=== PATIENT | male | born 1970 | race Caucasian/White ===

== ENCOUNTER 2018-03-19 11:36 | Emergency (ER) | payer OTHER ==
[~2018-03-19] VITALS: Ht 167.6 cm; Wt 108.9 kg
[~2018-03-19 11:36] MED LIST: ATEN25 PO; ATEN50 PO; Ativan1 MG SL; CLON.1 PO; Carvedilol12.5 MG PO; Cleocin HCl300 MG PO; HYDCHL12.5 PO; HYDPAM50 PO; LAMO100 PO; MIRT30 PO; Naprosyn500 MG PO; PROM25; Vibramycin100 MG PO
[2018-03-19 12:25] LABS: BASOPHILS ABSOLUTE AUTO 0.03 K/mm3 (0.00-0.23); BASOPHILS PERCENT AUTO 0 % (0-2); EOSINOPHILS ABSOLUTE AUTO 0.11 K/mm3 (0.00-0.68); EOSINOPHILS PERCENT AUTO 2 % (0-6); Hematocrit 43.8 % (37.0-53.0); Hemoglobin 15.1 g/dL (13.5-17.5); IMMATURE GRAN ABSOLUTE AUTO 0.03 K/mm3 (0.00-0.10); IMMATURE GRAN PERCENT AUTO 0 % (0-1); LYMPHOCYTES ABSOLUTE AUTO 1.39 K/mm3 (0.84-5.20); LYMPHOCYTES PERCENT AUTO 21 % (21-46); MONOCYTES ABSOLUTE AUTO 0.39 K/mm3 (0.16-1.47); MONOCYTES PERCENT AUTO 6 % (4-13); Mean Corpuscular HGB 27.2 pg (26.0-34.0); Mean Corpuscular HGB Conc 34.5 g/dL (31.5-36.5); Mean Corpuscular Volume 79 fL (80-100); Mean Platelet Volume 9.7 fL (9.1-12.4); NEUTROPHILS ABSOLUTE AUTO 4.84 K/mm3 (1.96-9.15); NEUTROPHILS PERCENT AUTO 71 % (41-73); Platelet Count 241 K/mm3 (150-400); RDW Standard Deviation 38.9 fL (35.1-46.3); Red Blood Cell Count 5.56 M/mm3 (4.30-5.90); White Blood Cell Count 6.79 K/mm3 (4.00-11.30)
[2018-03-19] MEDS ORDERED: Abilify2 MG (12:27)
[2018-03-19] MEDS ORDERED: METF500C PO (12:27)
[2018-03-19] MEDS ORDERED: FLUO10 PO (12:28)
[2018-03-19] MEDS ORDERED: FENO145 PO (12:28)
[2018-03-19] MEDS ORDERED: AMLO5 PO (12:28)
[2018-03-19] MEDS ORDERED: LISI20 PO (12:28)
[2018-03-19 12:46] LABS: Alanine Aminotransfer (ALT/SGP 49 U/L (12-78); Albumin, Blood 3.9 g/dL (3.4-5.0); Alk Phos 69 U/L (50-136); Anion Gap 11 mmol/L (6-16); Aspartate Aminotrans (AST/SGOT 31 U/L (12-37); Bilirubin, Total 0.5 mg/dL (0.1-1.0); Blood Urea Nitrogen 16 mg/dL (8-24); Bun/Creatinine Ratio 20.1 (12.0-20.0); CO2, Blood 23 mmol/L (21-32); Calcium, Blood 8.8 mg/dL (8.5-10.1); Chloride, Blood 104 mmol/L (98-108); Globulin, Blood 3.8 g/dL (2.2-4.0); Glomerular Filtration Rate >60 (60-); Glucose, Blood 125 mg/dL (70-99); Sodium, Blood 138 mmol/L (136-145); Total Protein, Blood 7.7 g/dL (6.4-8.2); Troponin I <0.015 ng/mL (0.000-0.040)
== END 2018-03-19 14:54 | disposition home or self-care (01) ==
LOC: ER 11:36
PROVIDERS: Physician Assistant
DX: I10 Essential (primary) hypertension (principal); E11.9 Type 2 diabetes mellitus without complications; Z87.891 Personal history of nicotine dependence; Z79.899 Other long term (current) drug therapy; Z79.84 Long term (current) use of oral hypoglycemic drugs
CPT/HCPCS: 36415; 71046; 80053; 83880; 84484; 85025; 93005; 93010; 96374; 96376; 99284

== ENCOUNTER 2019-07-05 07:38 | Emergency (ER) | payer OTHER ==
[~2019-07-05] VITALS: Ht 167.6 cm; Wt 90.7 kg
[~2019-07-05 07:38] MED LIST changes: +AMLO5 PO; +Abilify2 MG; +FENO145 PO; +FLUO10 PO; +LISI20 PO; +METF500C PO
[2019-07-05] MEDS ORDERED: Lamotrigine100 MG PO (07:51)
[2019-07-05] MEDS ORDERED: ZESTRIL40 MG PO (07:51)
[2019-07-05] MEDS ORDERED: Prozac20 MG PO (07:52)
[2019-07-05] MEDS ORDERED: METOPROLOL SUCC25 MG PO (07:52)
== END 2019-07-05 08:16 | disposition left against medical advice (07) ==
LOC: ER 07:38
DX: Z53.21 Procedure and treatment not carried out due to patient leaving prior to being seen by health care provider (principal)

== ENCOUNTER 2019-07-05 08:29 | Emergency (ER) | payer OTHER ==
[~2019-07-05] VITALS: Ht 167.6 cm; Wt 86.2 kg
[~2019-07-05 08:29] MED LIST changes: +Lamotrigine100 MG PO; +METOPROLOL SUCC25 MG PO; +Prozac20 MG PO; +ZESTRIL40 MG PO
[2019-07-05 09:23] LABS: BASOPHILS ABSOLUTE AUTO 0.03 K/mm3 (0.00-0.23); BASOPHILS PERCENT AUTO 1 % (0-2); EOSINOPHILS ABSOLUTE AUTO 0.24 K/mm3 (0.00-0.68); EOSINOPHILS PERCENT AUTO 4 % (0-6); Hematocrit 42.7 % (37.0-53.0); Hemoglobin 14.7 g/dL (13.5-17.5); IMMATURE GRAN ABSOLUTE AUTO 0.02 K/mm3 (0.00-0.10); IMMATURE GRAN PERCENT AUTO 0 % (0-1); LYMPHOCYTES ABSOLUTE AUTO 2.18 K/mm3 (0.84-5.20); LYMPHOCYTES PERCENT AUTO 36 % (21-46); MONOCYTES ABSOLUTE AUTO 0.42 K/mm3 (0.16-1.47); MONOCYTES PERCENT AUTO 7 % (4-13); Mean Corpuscular HGB 28.3 pg (26.0-34.0); Mean Corpuscular HGB Conc 34.4 g/dL (31.5-36.5); Mean Corpuscular Volume 82 fL (80-100); Mean Platelet Volume 11.2 fL (9.1-12.4); NEUTROPHILS ABSOLUTE AUTO 3.19 K/mm3 (1.96-9.15); NEUTROPHILS PERCENT AUTO 53 % (41-73); Platelet Count 195 K/mm3 (150-400); RDW Coefficient Variation 12.6 % (11.7-14.2); RDW Standard Deviation 37.6 fL (35.1-46.3); White Blood Cell Count 6.08 K/mm3 (4.00-11.30)
[2019-07-05 09:42] LABS: Alanine Aminotransfer (ALT/SGP 27 U/L (12-78); Albumin, Blood 3.7 g/dL (3.4-5.0); Albumin/Globulin Ratio 1.2 (0.8-1.8); Alk Phos 100 U/L (50-136); Anion Gap 5 mmol/L (6-16); Aspartate Aminotrans (AST/SGOT 14 U/L (12-37); Bilirubin, Total 0.3 mg/dL (0.1-1.0); Blood Urea Nitrogen 12 mg/dL (8-24); Bun/Creatinine Ratio 17.8 (12.0-20.0); CO2, Blood 26 mmol/L (21-32); Calcium, Blood 8.7 mg/dL (8.5-10.1); Chloride, Blood 105 mmol/L (98-108); Creatinine, Blood 0.68 mg/dL (0.60-1.20); Globulin, Blood 3.1 g/dL (2.2-4.0); Glomerular Filtration Rate >60 (60-); Glucose, Blood 137 mg/dL (70-99); Potassium, Blood 3.7 mmol/L (3.5-5.5); Sodium, Blood 136 mmol/L (136-145); Total Protein, Blood 6.8 g/dL (6.4-8.2)
== END 2019-07-05 11:47 | disposition home or self-care (01) ==
LOC: ER 08:29
PROVIDERS: Emergency Medicine
DX: I10 Essential (primary) hypertension (principal); G47.33 Obstructive sleep apnea (adult) (pediatric); F31.9 Bipolar disorder, unspecified; E11.9 Type 2 diabetes mellitus without complications; Z91.14 Patient's other noncompliance with medication regimen; Z87.891 Personal history of nicotine dependence; Z79.899 Other long term (current) drug therapy; Z79.84 Long term (current) use of oral hypoglycemic drugs
CPT/HCPCS: 70450; 80053; 85025; 96361; 96374; 96375; 99284-25; J0360; J1885; J7030

== ENCOUNTER 2019-12-25 10:24 | Emergency (ER) | payer OTHER ==
[~2019-12-25] VITALS: Ht 167.6 cm; Wt 90.7 kg
[2019-12-25 11:17] LABS: BASOPHILS ABSOLUTE AUTO 0.03 K/mm3 (0.00-0.23); BASOPHILS PERCENT AUTO 0 % (0-2); EOSINOPHILS ABSOLUTE AUTO 0.17 K/mm3 (0.00-0.68); EOSINOPHILS PERCENT AUTO 2 % (0-6); Hematocrit 48.6 % (37.0-53.0); Hemoglobin 16.4 g/dL (13.5-17.5); IMMATURE GRAN ABSOLUTE AUTO 0.04 K/mm3 (0.00-0.10); IMMATURE GRAN PERCENT AUTO 0 % (0-1); LYMPHOCYTES ABSOLUTE AUTO 1.49 K/mm3 (0.84-5.20); LYMPHOCYTES PERCENT AUTO 16 % (21-46); MONOCYTES ABSOLUTE AUTO 0.41 K/mm3 (0.16-1.47); MONOCYTES PERCENT AUTO 5 % (4-13); Mean Corpuscular HGB 27.2 pg (26.0-34.0); Mean Corpuscular HGB Conc 33.7 g/dL (31.5-36.5); Mean Corpuscular Volume 81 fL (80-100); Mean Platelet Volume 9.8 fL (9.1-12.4); NEUTROPHILS ABSOLUTE AUTO 6.94 K/mm3 (1.96-9.15); NEUTROPHILS PERCENT AUTO 77 % (41-73); Platelet Count 264 K/mm3 (150-400); RDW Coefficient Variation 12.6 % (11.7-14.2); RDW Standard Deviation 36.4 fL (35.1-46.3); Red Blood Cell Count 6.02 M/mm3 (4.30-5.90); White Blood Cell Count 9.08 K/mm3 (4.00-11.30)
[2019-12-25 11:43] LABS: Alanine Aminotransfer (ALT/SGP 27 U/L (12-78); Albumin, Blood 3.9 g/dL (3.4-5.0); Albumin/Globulin Ratio 1.1 (0.8-1.8); Alk Phos 89 U/L (50-136); Anion Gap 8 mmol/L (6-16); Aspartate Aminotrans (AST/SGOT 16 U/L (12-37); Bilirubin, Total 0.5 mg/dL (0.1-1.0); Blood Urea Nitrogen 11 mg/dL (8-24); CO2, Blood 24 mmol/L (21-32); Calcium, Blood 9.1 mg/dL (8.5-10.1); Chloride, Blood 104 mmol/L (98-108); Creatinine, Blood 0.61 mg/dL (0.60-1.20); Globulin, Blood 3.7 g/dL (2.2-4.0); Glomerular Filtration Rate >60 (60-); Glucose, Blood 148 mg/dL (70-99); Potassium, Blood 3.9 mmol/L (3.5-5.5); Sodium, Blood 136 mmol/L (136-145); Total Protein, Blood 7.6 g/dL (6.4-8.2)
[2019-12-25] MEDS ORDERED: Toprol Xl25 MG PO (12:58)
== END 2019-12-25 14:00 | disposition home or self-care (01) ==
LOC: ER 10:24
PROVIDERS: Emergency Medicine
DX: I10 Essential (primary) hypertension (principal); R51 Headache; Z91.14 Patient's other noncompliance with medication regimen; Z87.891 Personal history of nicotine dependence
CPT/HCPCS: 36415; 70450; 80053; 85025; 93005; 93010; 96374; 96375; 99284-25; A9270-GY; J0780; J1100; J1200

== ENCOUNTER 2020-12-06 18:55 | Emergency (ER) | payer OTHER ==
[~2020-12-06] VITALS: Ht 167.6 cm; Wt 103.4 kg
[~2020-12-06 18:55] MED LIST changes: +Toprol Xl25 MG PO
[2020-12-06] MEDS ORDERED: Bactrim Ds Tab1 EACH PO (20:49)
[2021-05-20] MEDS ORDERED: CEPH500 PO (23:36)
[2021-05-20] MEDS ORDERED: Bactrim Ds Tab1 EACH PO (23:36)
== END 2020-12-06 20:55 | disposition left against medical advice (07) ==
LOC: ER 18:55
DX: S00.01XA Abrasion of scalp, initial encounter (principal); L02.811 Cutaneous abscess of head [any part, except face]; L03.811 Cellulitis of head [any part, except face]; I10 Essential (primary) hypertension; Z91.14 Patient's other noncompliance with medication regimen; Z79.899 Other long term (current) drug therapy; W01.0XXA Fall on same level from slipping, tripping and stumbling without subsequent striking against object, initial encounter
CPT/HCPCS: 99283; A9270

== ENCOUNTER 2020-12-16 01:15 | Emergency (ER) | payer OTHER ==
[~2020-12-16] VITALS: Ht 167.6 cm; Wt 104.3 kg
[~2020-12-16 01:15] MED LIST changes: +Bactrim Ds Tab1 EACH PO
[2020-12-16] MEDS ORDERED: LISI20 (01:48)
[2021-05-20] MEDS ORDERED: Bactrim Ds Tab1 EACH PO (23:36)
[2021-05-20] MEDS ORDERED: CEPH500 PO (23:36)
== END 2020-12-16 03:25 | disposition home or self-care (01) ==
LOC: ER 01:15
DX: R51.9 Headache, unspecified (principal); F15.10 Other stimulant abuse, uncomplicated; Z87.891 Personal history of nicotine dependence; Z79.899 Other long term (current) drug therapy
CPT/HCPCS: 96374; 96375; 99283-25; J1200; J1885; J2405; J7030

== ENCOUNTER 2020-12-19 11:22 | Emergency (ER) | payer OTHER ==
[~2020-12-19] VITALS: Ht 167.6 cm; Wt 104.3 kg
[~2020-12-19 11:22] MED LIST changes: +LISI20
[2020-12-19 12:05] LABS: BASOPHILS ABSOLUTE AUTO 0.05 K/mm3 (0.00-0.23); BASOPHILS PERCENT AUTO 0 % (0-2); EOSINOPHILS ABSOLUTE AUTO 0.14 K/mm3 (0.00-0.68); EOSINOPHILS PERCENT AUTO 1 % (0-6); Hematocrit 41.4 % (37.0-53.0); Hemoglobin 14.2 g/dL (13.5-17.5); IMMATURE GRAN ABSOLUTE AUTO 0.05 K/mm3 (0.00-0.10); IMMATURE GRAN PERCENT AUTO 0 % (0-1); LYMPHOCYTES ABSOLUTE AUTO 1.57 K/mm3 (0.84-5.20); LYMPHOCYTES PERCENT AUTO 12 % (21-46); MONOCYTES ABSOLUTE AUTO 0.73 K/mm3 (0.16-1.47); MONOCYTES PERCENT AUTO 6 % (4-13); Mean Corpuscular HGB 27.2 pg (26.0-34.0); Mean Corpuscular HGB Conc 34.3 g/dL (31.5-36.5); Mean Corpuscular Volume 79 fL (80-100); Mean Platelet Volume 10.3 fL (9.1-12.4); NEUTROPHILS PERCENT AUTO 80 % (41-73); Platelet Count 268 K/mm3 (150-400); RDW Coefficient Variation 12.9 % (11.7-14.2); RDW Standard Deviation 36.4 fL (35.1-46.3); Red Blood Cell Count 5.22 M/mm3 (4.30-5.90); White Blood Cell Count 12.84 K/mm3 (4.00-11.30)
[2020-12-19 12:26] LABS: Anion Gap 10 mmol/L (6-16); Blood Urea Nitrogen 15 mg/dL (8-24); CO2, Blood 20 mmol/L (21-32); Calcium, Blood 8.3 mg/dL (8.5-10.1); Chloride, Blood 106 mmol/L (98-108); Creatinine, Blood 0.94 mg/dL (0.60-1.20); Glomerular Filtration Rate >60 (60-); Glucose, Blood 215 mg/dL (70-99); Potassium, Blood 4.1 mmol/L (3.5-5.5); Sodium, Blood 136 mmol/L (136-145)
[2020-12-19] MEDS ORDERED: CEPH500 PO (12:36)
[2020-12-19 14:57] LABS: Source, Urine Clean Catch
[2020-12-19 15:03] LABS: Appearance, Urine Clear (Clear); Bilirubin, Urine Neg (Neg); Blood, Urine Neg (Neg); Color, Urine Yellow (P-Yellow); Glucose Qualitative, Urine 2+ (Neg); Ketones, Urine Neg (Neg); Leukocyte Esterase, Urine Neg (Neg); Nitrite, Urine Neg (Neg); Protein, Urine 2+ (Neg); Urobilinogen, Urine NORM (Normal)
[2020-12-19 15:11] LABS: Bacteria Few /hpf; Squamous Epithelial Cells Not Seen /hpf (Few); White Blood Cells, Urine 0-2 /hpf (0-5)
[2020-12-19 15:15] LABS: U Amphetamine Screen DETECTED; U Barbituate Screen Not Detected; U Benzodiazapine Screen Not Detected; U Buprenorphine Screen Not Detected; U Cannabinoids Screen DETECTED; U Cocaine Screen Not Detected; U Methadone Screen Not Detected; U Methamphetamine Screen DETECTED; U Opiates Screen Not Detected; U Oxycodone Screen Not Detected; U Phencyclidine Screen Not Detected; U Propoxyphene Screen Not Detected
[2021-05-20] MEDS ORDERED: CEPH500 PO (23:36)
[2021-05-20] MEDS ORDERED: Bactrim Ds Tab1 EACH PO (23:36)
== END 2020-12-19 16:30 | disposition home or self-care (01) ==
LOC: ER 11:22
PROVIDERS: Emergency Medicine; Physician Assistant
DX: L03.811 Cellulitis of head [any part, except face] (principal); I10 Essential (primary) hypertension; Z87.891 Personal history of nicotine dependence; Z79.899 Other long term (current) drug therapy
CPT/HCPCS: 36415; 70470; 80048; 81001; 82947; 83605; 84484; 85025; 87040; 93005; 93010; 96374-59; 99284-25; A9270; J1885; J7030; Q9967

== ENCOUNTER 2020-12-24 17:00 | Emergency (ER) | payer OTHER ==
[~2020-12-24] VITALS: Ht 167.6 cm; Wt 104.3 kg
[~2020-12-24 17:00] MED LIST changes: +CEPH500 PO
[2021-05-20] MEDS ORDERED: CEPH500 PO (23:36)
[2021-05-20] MEDS ORDERED: Bactrim Ds Tab1 EACH PO (23:36)
== END 2020-12-24 17:20 | disposition home or self-care (01) ==
LOC: ER 17:00
DX: Z09 Encounter for follow-up examination after completed treatment for conditions other than malignant neoplasm (principal); Z79.899 Other long term (current) drug therapy
CPT/HCPCS: 99281

== ENCOUNTER 2021-02-12 11:54 | Emergency (ER) | payer OTHER ==
[~2021-02-12] VITALS: Ht 167.6 cm; Wt 104.3 kg
[2021-02-12] MEDS ORDERED: CEPH500 PO (12:16)
[2021-02-12] MEDS ORDERED: Bactrim Ds Tab1 EACH PO (12:16)
== END 2021-02-12 12:25 | disposition home or self-care (01) ==
LOC: ER 11:54
DX: L03.113 Cellulitis of right upper limb (principal); Z87.891 Personal history of nicotine dependence; Z79.899 Other long term (current) drug therapy
CPT/HCPCS: 99283

== ENCOUNTER 2021-05-13 10:16 | Emergency (ER) | payer OTHER ==
[~2021-05-13] VITALS: Ht 167.6 cm; Wt 108.9 kg
[2021-05-13] MEDS ORDERED: Cleocin HCl300 MG PO (10:53)
== END 2021-05-13 11:05 | disposition home or self-care (01) ==
LOC: ER 10:16
DX: L03.114 Cellulitis of left upper limb (principal); I10 Essential (primary) hypertension; Z79.899 Other long term (current) drug therapy
CPT/HCPCS: 99283

== ENCOUNTER 2021-05-20 20:58 | Emergency (ER) | payer OTHER | END 2021-05-20 23:40 | disposition home or self-care (01) | LOC: ER 20:58 | DX: H00.034 Abscess of left upper eyelid (principal); I10 Essential (primary) hypertension; Z79.899 Other long term (current) drug therapy ==

== ENCOUNTER 2021-09-13 21:46 | Emergency (ER) | payer OTHER ==
[~2021-09-13] VITALS: Ht 167.6 cm; Wt 108.9 kg
[2021-09-13] MEDS ORDERED: CLIN150 PO (23:25)
== END 2021-09-14 01:22 | disposition home or self-care (01) ==
LOC: ER 21:46
DX: K04.7 Periapical abscess without sinus (principal); G43.909 Migraine, unspecified, not intractable, without status migrainosus; I10 Essential (primary) hypertension
CPT/HCPCS: 96365; 96366; 96375; 99283-25; J1885; J7030

== ENCOUNTER 2021-10-03 14:51 | Emergency (ER) | payer OTHER ==
[~2021-10-03] VITALS: Ht 167.6 cm; Wt 99.8 kg
[~2021-10-03 14:51] MED LIST changes: +CLIN150 PO
[2021-10-03] MEDS ORDERED: CATAPRES0.1 MG PO (15:28)
== END 2021-10-03 16:18 | disposition home or self-care (01) ==
LOC: ER 14:51
DX: L02.212 Cutaneous abscess of back [any part, except buttock and flank] (principal); L02.414 Cutaneous abscess of left upper limb; L02.416 Cutaneous abscess of left lower limb; G43.909 Migraine, unspecified, not intractable, without status migrainosus; I10 Essential (primary) hypertension; F43.10 Post-traumatic stress disorder, unspecified; Z79.899 Other long term (current) drug therapy
CPT/HCPCS: 10060; 90471; 90714; 99283-25

== ENCOUNTER 2021-12-26 20:12 | Emergency (ER) | payer OTHER ==
[~2021-12-26] VITALS: Ht 167.6 cm; Wt 108.9 kg
[~2021-12-26 20:12] MED LIST changes: +CATAPRES0.1 MG PO
== END 2021-12-26 21:49 | disposition left against medical advice (07) ==
LOC: ER 20:12
DX: K13.0 Diseases of lips (principal); Z53.21 Procedure and treatment not carried out due to patient leaving prior to being seen by health care provider
CPT/HCPCS: 99283

== ENCOUNTER 2023-09-02 14:49 | Emergency (ER) | payer OTHER ==
[~2023-09-02] VITALS: Ht 167.6 cm; Wt 99.8 kg
[2023-09-02 15:12] VITALS: BP 192/100
[2023-09-02] MEDS ORDERED: AMOCLA875 PO (16:36)
== END 2023-09-02 17:24 | disposition home or self-care (01) ==
LOC: ER 14:49
DX: S61.452A Open bite of left hand, initial encounter (principal); W54.0XXA Bitten by dog, initial encounter; I10 Essential (primary) hypertension; F31.9 Bipolar disorder, unspecified; Z79.899 Other long term (current) drug therapy
CPT/HCPCS: 73130; 99283-25; A9270

== ENCOUNTER 2024-05-30 23:28 | Emergency (ER) | payer OTHER ==
[~2024-05-30] VITALS: Ht 167.6 cm; Wt 88.5 kg
[~2024-05-30 23:28] MED LIST changes: +ACET325 PO; +AMOCLA875 PO; +FURO40 PO; -LISI20; +METF500 PO; +POTA10T PO
[2024-05-31 00:02] LABS: BASOPHILS ABSOLUTE AUTO 0.05 K/mm3 (0.00-0.23); BASOPHILS PERCENT AUTO 1 % (0-2); EOSINOPHILS ABSOLUTE AUTO 0.13 K/mm3 (0.00-0.68); EOSINOPHILS PERCENT AUTO 1 % (0-6); Hematocrit 41.4 % (37.0-53.0); Hemoglobin 14.1 g/dL (13.5-17.5); IMMATURE GRAN ABSOLUTE AUTO 0.04 K/mm3 (0.00-0.10); IMMATURE GRAN PERCENT AUTO 0 % (0-1); LYMPHOCYTES ABSOLUTE AUTO 2.13 K/mm3 (0.84-5.20); LYMPHOCYTES PERCENT AUTO 20 % (21-46); MONOCYTES PERCENT AUTO 7 % (4-13); Mean Corpuscular HGB 27.7 pg (26.0-34.0); Mean Corpuscular HGB Conc 34.1 g/dL (31.5-36.5); Mean Corpuscular Volume 81 fL (80-100); Mean Platelet Volume 10.1 fL (9.1-12.4); NEUTROPHILS ABSOLUTE AUTO 7.63 K/mm3 (1.96-9.15); NEUTROPHILS PERCENT AUTO 71 % (41-73); Platelet Count 228 K/mm3 (150-400); RDW Coefficient Variation 14.6 % (11.7-14.2); RDW Standard Deviation 42.7 fL (35.1-46.3); Red Blood Cell Count 5.09 M/mm3 (4.30-5.90); White Blood Cell Count 10.68 K/mm3 (4.00-11.30)
[2024-05-31 00:14] LABS: Albumin/Globulin Ratio 1.1 (0.8-1.8); Bilirubin, Total 0.6 mg/dL (0.1-1.0); Bun/Creatinine Ratio 18.3 (12.0-20.0); Calcium, Blood 8.8 mg/dL (8.5-10.1); Creatinine, Blood 1.8 mg/dL (0.60-1.20); Globulin, Blood 3.8 g/dL (2.2-4.0); Potassium, Blood 4.2 mmol/L (3.5-5.5); Total Protein, Blood 7.8 g/dL (6.4-8.2)
[2024-05-31] MEDS ORDERED: Lactated Ringer's 1,000 ML IV SCH (01:00)
[2024-05-31 02:34] VITALS: BP 181/117
== END 2024-05-31 03:09 | disposition home or self-care (01) ==
LOC: ER 23:28
PROVIDERS: Emergency Medicine
DX: T49.0X1A Poisoning by local antifungal, anti-infective and anti-inflammatory drugs, accidental (unintentional), initial encounter (principal); R79.89 Other specified abnormal findings of blood chemistry; I10 Essential (primary) hypertension; F43.10 Post-traumatic stress disorder, unspecified; G43.909 Migraine, unspecified, not intractable, without status migrainosus; Z87.891 Personal history of nicotine dependence; Z79.899 Other long term (current) drug therapy; Z79.84 Long term (current) use of oral hypoglycemic drugs
CPT/HCPCS: 74176; 80053; 85025; 99284-25; J7120

== ENCOUNTER 2024-11-18 14:22 | Emergency (ER) | payer OTHER ==
[~2024-11-18] VITALS: Ht 167.6 cm; Wt 90.7 kg
[~2024-11-18 14:22] MED LIST changes: +FURO20 PO; +LISI5 PO; +METO50ER PO
[2024-11-18 15:04] LABS: CORONAVIRUS COVID-19 AG Negative (NEGATIVE); INFLUENZA A AG Negative (NEGATIVE); INFLUENZA B AG Negative (NEGATIVE)
[2024-11-18 16:10] VITALS: BP 227/143
[2024-11-18] MEDS ORDERED: Ketorolac Tromethamine 15mg Vial IV ONE (17:00)
== END 2024-11-18 17:11 | disposition home or self-care (01) ==
LOC: ER 14:22
PROVIDERS: Physician Assistant
DX: J40 Bronchitis, not specified as acute or chronic (principal); B34.9 Viral infection, unspecified; F43.10 Post-traumatic stress disorder, unspecified; I10 Essential (primary) hypertension; E11.9 Type 2 diabetes mellitus without complications; G43.909 Migraine, unspecified, not intractable, without status migrainosus; Z87.891 Personal history of nicotine dependence
CPT/HCPCS: 71046; 87428-QW; J1885

== ENCOUNTER 2024-11-18 18:56 | Observation (INO) | payer OTHER ==
[~2024-11-18] VITALS: Ht 167.6 cm; Wt 90.7 kg
[2024-11-18 20:08] LABS: BASOPHILS ABSOLUTE AUTO 0.05 K/mm3 (0.00-0.23); BASOPHILS PERCENT AUTO 1 % (0-2); EOSINOPHILS ABSOLUTE AUTO 0.12 K/mm3 (0.00-0.68); EOSINOPHILS PERCENT AUTO 2 % (0-6); Hematocrit 40.9 % (37.0-53.0); Hemoglobin 14.4 g/dL (13.5-17.5); IMMATURE GRAN ABSOLUTE AUTO 0.01 K/mm3 (0.00-0.10); IMMATURE GRAN PERCENT AUTO 0 % (0-1); LYMPHOCYTES ABSOLUTE AUTO 1.84 K/mm3 (0.84-5.20); LYMPHOCYTES PERCENT AUTO 25 % (21-46); MONOCYTES ABSOLUTE AUTO 0.47 K/mm3 (0.16-1.47); MONOCYTES PERCENT AUTO 7 % (4-13); Mean Corpuscular HGB 27.9 pg (26.0-34.0); Mean Corpuscular HGB Conc 35.2 g/dL (31.5-36.5); Mean Corpuscular Volume 79 fL (80-100); Mean Platelet Volume 9.9 fL (9.1-12.4); NEUTROPHILS ABSOLUTE AUTO 4.76 K/mm3 (1.96-9.15); NEUTROPHILS PERCENT AUTO 66 % (41-73); Platelet Count 241 K/mm3 (150-400); RDW Coefficient Variation 13.2 % (11.7-14.2); RDW Standard Deviation 38.1 fL (35.1-46.3); Red Blood Cell Count 5.16 M/mm3 (4.30-5.90); White Blood Cell Count 7.25 K/mm3 (4.00-11.30)
[2024-11-18 20:20] LABS: Source, Urine Clean Catch
[2024-11-18 20:24] LABS: Appearance, Urine Clear (Clear); Bilirubin, Urine Neg (Neg); Blood, Urine Neg (Neg); Color, Urine Yellow (P-Yellow); Glucose Qualitative, Urine 3+ (Neg); Ketones, Urine Neg (Neg); Leukocyte Esterase, Urine Neg (Neg); Nitrite, Urine Neg (Neg); Protein, Urine 3+ (Neg); Specific Gravity, Urine 1.025 (1.003-1.022); Urobilinogen, Urine NORM (Normal)
[2024-11-18 20:34] LABS: Bacteria Not Seen /hpf; Red Blood Cells, Urine Not Seen /hpf (0-2); Squamous Epithelial Cells Rare /hpf (Few); White Blood Cells, Urine 0-2 /hpf (0-5)
[2024-11-18 20:34] LABS: Ethanol (Alcohol), Blood, Med <3 mg/dL; Salicylate <1.7 mg/dL (2.8-20.0)
[2024-11-18 20:35] LABS: U Amphetamine Screen DETECTED; U Barbituate Screen Not Detected; U Benzodiazapine Screen Not Detected; U Buprenorphine Screen Not Detected; U Cannabinoids Screen DETECTED; U Cocaine Screen Not Detected; U Methadone Screen Not Detected; U Methamphetamine Screen DETECTED; U Opiates Screen Not Detected; U Oxycodone Screen Not Detected; U Phencyclidine Screen Not Detected
[2024-11-18 20:40] LABS: Acetaminophen, Random <2.0 ug/mL (10.0-30.0); Alanine Aminotransfer (ALT/SGP 32 U/L (12-78); Albumin, Blood 3.4 g/dL (3.4-5.0); Alk Phos 92 U/L (50-136); Anion Gap 13 mmol/L (3-11); Aspartate Aminotrans (AST/SGOT 17 U/L (12-37); Bilirubin, Total 0.5 mg/dL (0.1-1.0); Blood Urea Nitrogen 25 mg/dL (8-24); Bun/Creatinine Ratio 24.8 (12.0-20.0); CO2, Blood 23 mmol/L (21-32); Calcium, Blood 8.9 mg/dL (8.5-10.1); Chloride, Blood 106 mmol/L (98-108); Creatinine, Blood 1.01 mg/dL (0.60-1.20); Globulin, Blood 3.5 g/dL (2.2-4.0); Glomerular Filtration Rate 90 (60-); Glucose, Blood 323 mg/dL (70-99); Potassium, Blood 3.9 mmol/L (3.5-5.5); Sodium, Blood 138 mmol/L (136-145); Total Protein, Blood 6.9 g/dL (6.4-8.2)
[2024-11-18] MEDS ORDERED: NS 1,000 ML IV SCH (23:20)
[2024-11-18 23:38] LABS: Base Excess Venous 2.3 mmol/L; Bicarbonate Venous 25.4 mmol/L (24.0-30.0); PCO2 Venous 46.1 mmHg (38-42); pH Blood Venous 7.38 (7.34-7.37)
[2024-11-18 23:38] LABS: Beta-hydroxybutyrate 0.8 mg/dL (0.2-2.8)
[2024-11-19] MEDS ORDERED: Acetaminophen 500 MG Tab PO ONE (04:15)
[2024-11-19] MEDS ORDERED: Ibuprofen 400 MG Tab PO PRN (08:50)
[2024-11-19] MEDS ORDERED: Acetaminophen 325 MG TABLET PO PRN (08:50)
[2024-11-19] MEDS ORDERED: Ketorolac Tromethamine 30mg Vial IM ONE (11:10)
[2024-11-19] MEDS ORDERED: Carvedilol 6.25 MG Tab PO ONE (14:15)
[2024-11-19] MEDS ORDERED: Lisinopril 5 MG Tab PO ONE (14:15)
[2024-11-19] MEDS ORDERED: AmLODIPine Besylate 5 MG Tab PO ONE (14:15)
[2024-11-19] MEDS ORDERED: Methocarbamol 500 MG Tab PO ONE (18:50)
[2024-11-19] MEDS ORDERED: Lidocaine 4% 1 Patch TOP ONE (18:50)
[2024-11-19] MEDS ORDERED: Morphine Sulfate 4 MG/1 ML Injection IM ONE (20:25)
[2024-11-19] MEDS ORDERED: Carvedilol 6.25 MG Tab PO SCH (21:00)
[2024-11-19] MEDS ORDERED: HYDROmorphone HCl/Pf 1MG SYR IM PRN (21:15)
[2024-11-20] MEDS ORDERED: AmLODIPine Besylate 5 MG Tab PO SCH (09:00)
[2024-11-20] MEDS ORDERED: Lisinopril 5 MG Tab PO SCH (09:00)
[2024-11-20 12:08] VITALS: BP 144/91
== END 2024-11-20 14:00 | disposition other institution (70) ==
LOC: ER 18:56 → EOR 18:57
PROVIDERS: ADMIT Student in an Organized Health Care Education/Training Program
DX: F31.9 Bipolar disorder, unspecified (principal); R45.851 Suicidal ideations; F43.10 Post-traumatic stress disorder, unspecified; J40 Bronchitis, not specified as acute or chronic; B34.9 Viral infection, unspecified; I10 Essential (primary) hypertension; E11.9 Type 2 diabetes mellitus without complications; Z59.00 Homelessness unspecified; Z79.899 Other long term (current) drug therapy; Z87.891 Personal history of nicotine dependence
CPT/HCPCS: 71046; 80053; 80320; 81001; 82010; 82803; 82947; 85025; 87428-QW; 93005; 93010; 96360; 96361; 96372; 99285-25; A9270; G0378; G0480; J1171; J1885; J2270; J7030

== ENCOUNTER 2024-11-19 14:18 | Inpatient (IN) | payer OTHER ==
[~2024-11-19] VITALS: Ht 167.6 cm; Wt 96.8 kg
[2024-11-20] MEDS ORDERED: Calcium Carbonate 500 MG Tab Chew PO PRN (14:00)
[2024-11-20] MEDS ORDERED: TraZODone HCl 50 MG Tab PO PRN (14:00)
[2024-11-20] MEDS ORDERED: Polyethylene Glycol 3350 17 gm PO PRN (14:00)
[2024-11-20] MEDS ORDERED: Acetaminophen 325 MG TABLET PO PRN (14:00)
[2024-11-20] MEDS ORDERED: Melatonin 3 MG Tab PO PRN (14:00)
[2024-11-20] MEDS ORDERED: DiphenhydrAMINE HCl 50 MG Cap PO PRN (14:00)
[2024-11-20] MEDS ORDERED: Aluminum Hydroxide 320MG/5ML 473 ML PO PRN (14:00)
[2024-11-20] MEDS ORDERED: DiphenhydrAMINE HCl 50 MG/ML 1ML Vial IV PRN (14:05)
[2024-11-20] MEDS ORDERED: Haloperidol 5 MG Tab PO PRN (14:05)
[2024-11-20] MEDS ORDERED: Ibuprofen 600 MG Tab PO PRN (14:05)
[2024-11-20] MEDS ORDERED: Haloperidol Lactate Inj. 5 MG/ML Injection IM PRN (14:05)
[2024-11-20] MEDS ORDERED: LORazepam 2 MG/ML 1ML Injection IM PRN (14:05)
[2024-11-20] MEDS ORDERED: LORazepam 2 MG Tab PO PRN (14:05)
[2024-11-20] MEDS ORDERED: FLU VACC TS2024-25(6MOS UP)/PF 45 MCG/0.5 ML SYRINGE IM PRN (14:05)
[2024-11-20] MEDS ORDERED: HydrOXYzine Pamoate 50 MG Cap PO PRN (14:05)
[2024-11-20] MEDS ORDERED: Ondansetron 4 MG SoluTab MM PRN (14:10)
[2024-11-20] MEDS ORDERED: OLANZapine ODT 10 MG Tab MM PRN (14:10)
[2024-11-20 14:21] VITALS: BP 100/73
[2024-11-20 15:12] VITALS: BP 100/73
--- NOTE | 2024-11-20 17:29 | NUR ---
ADMIT PATIENT ARRIVED TO [facility] FROM ED, AFTER HYPERTENSION CONTROLED WITH PO MEDICATIONS. PATIENT VERBALIZED THAT HE WAS PLANNING TO WALK OUT INTO THE ROAD TO BE "FOUND UNDER A TRUCK" WHEN HIS MOTHER CALLED HIM AND WAS ABLE TO TALK HIM INTO GOING TO THE HOSPITAL FOR HELP WITH HIS FEELING OF SI. PATIENT VERBALIZED THAT HE CONTINUES TO THINK OF SI. PATIENT VERBALIZING THAT HE IS WANTING TO GET ASSISTANCE WITH HIS DEPRESSION AND FEELING OF BEING ALONE. PATIENT VERBALIZED THAT HIS MOTHER IS VERY SUPPORTIVE, BUT DUE TO HER AGE IS NOT ABLE TO ASSIST WITH ALOT. PATIENT IS HOMELESS AND HAS BEEN SLEEPING IN THE HOLLIDAY. PATIENT C/O LOW BACK PAIN WHITCH IS CHRONIC IN NATURE FROM PREVIOUS INJURY. PATIENT VERBALIZED THAT HE HAS A HISTORY OF CUTTING, MAINLY TO HIS ARMS AND LEGS, OLD SCARS ARE SEEN VERY FAINT AND WELL HEALED. PATIENT VERBALIZED THAT HE HAS NOT HAD CUTTING URGES IN YEARS. PATIENT COOPERATIVE WITH ADMIT PROCESS. PATIENT VERBALIZED HE IS LOOKING FOWARD TO TREATMENT.
[2024-11-21 00:02] VITALS: BP 144/101
--- NOTE | 2024-11-21 04:20 | NUR ---
SHIFT SUMMARY PT IN BED AT START OF SHIFT, AWAKES EASILY. PT DENIED ANY SI, HI OR HALLUCINATIONS. HE WAS CALM AND COOPERATIVE WITH CARE. PT GOT UP FOR EVENING SNACK AND WAS INTERACTIVE WITH STAFF AND PEERS. HE RETURNED TO HIS ROOM AFTER SNACK AND THEN ASKED FOR AND RECEIVED MELATONIN AND TRAZODONE. PT HAS BEEN IN BED THROUGHOUT THE NIGHT. APPEARS TO HAVE SLEPT WELL, SNORING AT TIMES AND RESPIRATIONS CONFIRMED. Q15 MINUTE CHECKS TO CONTINUE PER UNIT PROTOCOL.
--- NOTE | 2024-11-21 08:45 | NUR ---
MEDICAL CONSULT CALLED TO HOSPITALIST DR. COOPER FOR MANAGEMENT OF HTN AND POSSIBLE DIABETES.
[2024-11-21] MEDS ORDERED: Multivitamins 1 Tab PO SCH (09:00)
[2024-11-21] MEDS ORDERED: Losartan Potassium 25 MG Tab PO SCH (09:00)
[2024-11-21] MEDS ORDERED: FLUoxetine HCl 10 MG Cap PO SCH (10:00)
[2024-11-21] MEDS ORDERED: Carvedilol 25 MG Tab PO SCH (17:00)
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
[2024-11-21] MEDS ORDERED: Gabapentin 300 MG Cap PO SCH (21:00)
[2024-11-21 21:02] VITALS: BP 164/104
--- NOTE | 2024-11-22 04:21 | NUR ---
SHIFT SUMMARY PT DENIED ANY SI, HI OR AVH. HE WAS PLEASANT AND COOPERATIVE, JOKING WITH STAFF AND RECITING POETRY. HE HAD EVENING SNACK AND THEN JOINED PEERS IN GROUP ROOM BEFORE GOING TO BED. HE WAS COMPLIANT WITH MEDICATIONS. HE REQUESTED AND RECEIVED MELATONIN AND TRAZODONE TO ASSIST WITH SLEEPING AND IBUPROFEN AND TYLENOL FOR CHRONIC BACK PAIN. PT HAS BEEN SLEEPING FOR APPROXIMATELY 5 HOURS, RESPIRATIONS CONFIRMED. Q15 MINUTE CHECKS BY STAFF PER UNIT PROTOCOL.
[2024-11-22] MEDS ORDERED: MetFORMIN HCl 500 mg PO SCH (09:00)
[2024-11-22] MEDS ORDERED: Furosemide 20 MG Tab PO SCH (09:00)
--- NOTE | 2024-11-22 11:15 | NUR ---
PT REPORTS THAT HE IS UNHAPPY ABOUT HEART HEALTHY DIET. HE REPORTS THAT HE DOES NOT HAVE MUCH TO LIVE FOR AND CHANGING HIS DIET IS MAKING HIM MORE SUICIDAL. HE STATES HE WOULD LIKE TO LEAVE AMA AND "WALK INTO TRAFFIC" DR. COOPER AND DR. LOGAN NOTIFIED. BOTH BELIEVE THAN BENIFIT OF CHANGING BACK TO A REGULAR DIET OUTWEIGHS THE RISK. DIET ORDER UPDATED
[2024-11-22 16:59] VITALS: BP 131/84
--- NOTE | 2024-11-22 18:55 | NUR ---
SHIFT SUMMARY PT AA&OX4. PT ELEVATED THIS MORNING D/T DIET CHANGE. HE WAS PLEASED WITH DIET BEING CHANGES BACK TO REGULAR AND BEHAVIOR HAS BEEN APPROPRIATE. HE HAS BEEN RECEPTIVE TO CHF AND DIET EDUCATION. HE REPORTS CHRONIC NERVE PAIN. DR. COOPER NOTIFIED AND GABAPENTIN INCREASED. DR. LOGAN NOTIFIED OF POOR SLEEP. NO NEW ORDERS RECIEVED. PT DENIES SI, AVH. MOOD IS GOOD, AFFECT IS CONGRUENT. SPEECH AND EYE CONTACT APPROPRIATE. PT UP TO MILIEU, GROUPS, AND MEALS. WILL CONTINUE POC.
[2024-11-22] MEDS ORDERED: Gabapentin 300 MG Cap PO SCH (21:00)
[2024-11-22 22:28] VITALS: BP 144/98
--- NOTE | 2024-11-23 01:37 | NUR ---
PATIENT AWAKE AND C/O INABILITY TO SLEEP. HE IS COOPERTIVE WITH CARE. HE IS CURRENTLY IN THE SR WITH HEAD SET AND WARM TEA. RN OFFERED TO PLACE ANOTHER FOAM OVERLAY HOWEVER, HE IS STATING "THIS WON'T HELP ME". WE WILL CONTINUE TO MONITOR EVERY 15 MIN FOR SAFETY AND COMFORT.
--- NOTE | 2024-11-23 02:53 | NUR ---
ASSUMED CARE FROM PRIOR SHIFT: PATIENT IS A/O X4, ABLE TO VOICE NEEDS AND HAVE MEANINGFUL CONVERSATION. HE CURRENTLY DENIES SI, AH, VH AND TH. HE IS COMPLIANT WITH MEDICATIONS, CARE AND ASSESSMENT. HE IS ENGAGED WITH PM GROUP AND SNACK TIME. HE SOCILAIZES WITH OTHER PATIENTS AND STAFF APPROPRIATELY. HE DOES C/O BACK PAIN AND PRN TYLENOL/MOTRIN GIVEN. HE HAS A DIFFICULT TIME STAYING A SLEEP. HE DID GET UP SEVERAL TIMES THROUGH OUT THE NIGHT. HE TELLS ME " I DON'T SLEEP WELL MOST NIGHTS" HE DID SPEND SOME TIME IN THE SR AND THEN WENT BACK TO BED WITHOUT ENCOURAGEMENT. HE IS CURRENTLY SLEEPING. NO NOTED BEHAVIORS OR ISSUES. WE WILL CONTINUE TO MONITOR EVERY 15 MIN FOR SAFETY AND COMFORT.
[2024-11-23 08:14] VITALS: BP 114/81
[2024-11-23] MEDS ORDERED: FLUoxetine HCL 20 MG CAP PO SCH (09:00)
--- NOTE | 2024-11-23 12:40 | NUR ---
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
--- NOTE | 2024-11-23 12:43 | NUR ---
IMPORTANT HOSPITAL DISCHARGE INFORMATION SW unable to schedule patient hospital discharge appointment this day (11/23) as PCP office is closed. Hospital discharge must be scheduled on Sunday 11/26
[2024-11-23] MEDS ORDERED: MetFORMIN HCl 500 mg PO SCH (17:00)
--- NOTE | 2024-11-23 17:07 | NUR ---
SHIFT SUMMARY PT AA&OX4. PLEASANT AND COOPERATIVE WITH CARE. COMPLIANT WITH MEDICATIONS. NO ADVERSE SIDE EFFECTS NOTED. METFORMIN INCREASED TO BID. GABAPENTIN INCREASED TO TID. PROZAC TITRATED TO 20MG. TRIAL OF SEROQUEL TONIGHT TO IMPROVE BROKEN SLEEP. SPEECH AND EYE CONTACT APPROPRIATE. MOOD REPORTED GOOD. AFFECT CONGRUENT. PT HAS BEEN UP AND ACTIVE IN THE MILlEU. HE HAS BEEN KIND AND ENCOURAGING TO PEERS. HE DENIES SI, AVH. EDUCATION ON CHF, DM, AND MDD REINFORCED. PT RECEPTIVE TO EDUCATION. HE DENIES ANY NEEDS AT THIS TIME. WILL CONTINUE POC
[2024-11-23] MEDS ORDERED: QUEtiapine Fumarate 100 MG Tab PO SCH (21:00)
[2024-11-23 22:38] VITALS: BP 170/95
--- NOTE | 2024-11-24 03:09 | NUR ---
SHIFT SUMMARY: ASSUMED CARE FROM PRIOR SHIFT. PATIENT IS A/OX4, ABLE TO VOICE NEEDS AND HAVE MEANINGFUL CONVERSATIONS. HE IS COMPLIANT WITH MEDICATIONS, ASSESSMENT AND CARE. HE CURRENTLY DENIES SI, VH, AH AND TH. HE SOCIALIZES WITH STAFF AND OTHER PATIENTS APPROPRIATELY. HE PARTICIPATES IN PM GROUP AND SNACK TIME. HE IS HOPING HE WILL SLEEP "BETTER" THIS SHIFT. HE DOES HAVE SOME MEDICATION CHANGES TO ASSIST IN BETTER SLEEP. HE IS SLEEPING WITHOUT BEHAVIORS OR ISSUES. HIS SLEEP REMAINS UNBROKEN SO FAR. WE WILL CONTINUE TO MONITOR EVERY 15 MIN FOR SAFETY AND COMFORT.
--- NOTE | 2024-11-24 04:50 | NUR ---
PATIENT WOKE UP AT 430 AM C/O BILAT SHOULDER PAIN AND SOME MILD ANXIETY. RN GAVE PRN TYLENOL AND VISTARIL. SHE WAS THANKFUL AND RETURNED TO BED. NO NOTED BEHAVIORS OR ISSUES.
--- NOTE | 2024-11-24 05:28 | NUR ---
PATIENT SLEPTED THROUGH THE NIGHT. NO NOTED ISSUES OR BEHAVIORS. WE WILL CONTINUE TO MONITOR EVERY 15 MIN FOR SAFETY AND COMFORT.
[2024-11-24 08:16] VITALS: BP 143/87
[2024-11-24] MEDS ORDERED: Gabapentin 300 MG Cap PO SCH (14:00)
--- NOTE | 2024-11-24 14:21 | NUR ---
PT STATES HE STRUGGLED TO WAKE UP THIS MORNING, FELT GROGGY, ENDED UP COMING TO BREAKFAST LATE. AFTER BREAKFAST AND COFFEE PT SMILING AND ENGAGED AND ACTIVE IN MILIEU AND WITH GROUPS, PT HAS BEEN SHARING AND READING POETRY WITH HIS ROOMATE, HE IS SHARING GOALS AND POSITIVE LIFE EXPERIENCES. HE IS GENERALLY LAUGHING AND SMILING TODAY, DENIES SI AND REPORTS HE IS THANKFUL TO NOT BE SLEEPING OUTSIDE IN THE COLD. HE DOES CO INCREASE IN NEUROPATHIC PAIN THIS AFTERNOON, SPOKE TO HOSPITALIST AND NEURONTIN DOSE CHANGED TO TID.
[2024-11-24 23:38] VITALS: BP 164/104
--- NOTE | 2024-11-25 03:31 | NUR ---
SHIFT SUMMARY: PATIENT A/OX4, ABLE TO VOICE NEEDS AND HAVE MEANINGFUL CONVERSATION. PATIENT IS SEEMINGLY IN A GOOD MOOD. HE IS SOCIALIZING WITH OTHER PATIENTS AND STAFF APPROPRIATELY. HE DENIES SI, , AH AND TH. HE IS COMPLIANT WITH MEDICATIONS, ASSESSMENT AND CARE. HE IS A LITTLE ANXIOUS ABOUT DISCHARGE HE WANTS A "HOME" TO DISCHARGE TOO. HE GOES TO SLEEP WITHOUT ENCOURAGEMENT AND IS STILL SLEEPING. NEW PM MEDICATIONS ARE "WORKING WELL". NO NOTED BEHAVIORS OR ISSUES. WE WILL CONTINUE TO MONITOR EVERY 15 MIN FOR COMFORT AND SAFETY.
--- NOTE | 2024-11-25 05:24 | NUR ---
PATIENT CONTINUES TO SLEEP THROUGH THE NIGHT. NO NOTED BEHAVIORS OR ISSUES.
[2024-11-25 08:10] VITALS: BP 146/89
--- NOTE | 2024-11-25 16:53 | NUR ---
SHIFT SUMMARY PT AA&OX4 PLEASANT AND COOPERATIVE WITH CARE. COMPLIANT WITH MEDICATIONS AND REPORTS NO ADVERSE SIDE EFFECTS. BP AND BG ELEVATED. LOSARTAN INCREASED TO 50MG DAILY, JAURDIANCE 10MG DAILY ADDED. PT MEDICATED WITH TYLENOL AND ADVIL X1 FOR GENERALIZED PAIN WITH GOOD RESULTS. SPEECH AND EYE CONTACT APPROPRIATE. PT REPORTS GOOD MOOD AFFECT IS EUTHYMIC. PT UP TO GROUPS AND MEALS. HE IS ENCOURAGING AND POSITIVE WITH PEERS. HE DENIES SI, AVH. EDUCATIONS ON MEDICATIONS AND DIET REINFORCED. WILL CONTINUE POC
[2024-11-25 22:55] VITALS: BP 172/112
--- NOTE | 2024-11-26 03:43 | NUR ---
SHIFT SUMMARY: PATIENT IS A/OX4, ABLE TO VOICE NEEDS. HE IS COMPLIANT WITH MEDICATIONS, ASSESSMENT AND CARE. HE IS ENGAGED IN PATIENT GROUP ROUND ELIGIO AT BEGINNING OF SHIFT. THIS ENVOLVED MOST OF THE PATIENTS. AT TIMES THE CONVERSATION GOT A LITTLE LOUD THE TOPIC OF CONVERSATION WAS ANABAPTISM BASED. I ENCOURAGED ALL PARTIES TO BE RESPECTFUL OF DIFFERANT OPPINIONS. RENZO WAS VERY RECEPTIVE TO TAKING A MINUTE TO LISTEN TO OTHER THOUGHTS AND OPINIONS. HE CURRENTLY DENIES SI, VH, AH AND TH. HE IS VERY HELPFUL WITH OTHER PATIENTS, AND TAKES ON A "HOST OR BIG BROTHER" ATTITUDE. HE GOES TO BED WITHOUT ENCOURAGEMENT AND IS CURRENTLY SLEEPING. NO NOTED BEHAVIORS OR ISSUES. WE WILL CONTINUE TO MONITOR EVERY 15 MIN FOR SAFETY AND COMFORT.
--- NOTE | 2024-11-26 05:44 | NUR ---
PATIENT SLEPTED THROUGH THE NIGHT. NO NOTED BEHAVIORS OR ISSUES.
[2024-11-26 08:31] VITALS: BP 139/98
[2024-11-26] MEDS ORDERED: Losartan Potassium 50 MG Tab PO SCH (09:00)
[2024-11-26] MEDS ORDERED: Carvedilol12.5 MG PO (12:19)
[2024-11-26] MEDS ORDERED: FURO20 PO (12:19)
[2024-11-26] MEDS ORDERED: GABA300 PO (12:19)
[2024-11-26] MEDS ORDERED: Prozac40 MG PO (12:19)
[2024-11-26] MEDS ORDERED: QUET100 PO (12:20)
[2024-11-26] MEDS ORDERED: LOSA50 PO (12:20)
--- NOTE | 2024-11-26 12:32 | NUR ---
12:35 PT DISCHARGED WITH ALL BELONGINGS AND DISCHARGE INSTRUCTIONS. PT DID A SAFETY PLAN WITH THIS SUPERVISOR [employer], HE IDENTIFIED GOALS, COPING SKILLS AND BEHAVIOR THAT MIGHT BE PRESENT WHEN A CRISIS MAY BE CLOSE. HE IDENTIFIED PEOPLE AND AGENCYS THAT HE CAN GO TO FOR HELP. PEER SUPPORT FROM [employer] CAME TO GET THE PT.
--- NOTE | 2024-11-26 12:41 | NUR ---
PT DENIED SI, HI, AVH AND ANXIETY. HE REPORTED LOW BACK PAIN OF 5/10w AND RECIEVED TYLENOL 650MG WHICH WAS EFFECTIVE AND TOOK HIS PAIN LEVEL TO A 4/10w. PT REPORTED "IT'S A FOOD DAY, I'M HAVE HOPE!" PT'S AFFECT IS EUTHYMIC AND PLAYFUL WITH OTHER PT'S. PT WAS DISCHARGED AT 12:35...SEE DISCHARGE NOTE.
[2024-11-27] MEDS ORDERED: FLUoxetine HCL 20 MG CAP PO SCH (09:00)
== END 2024-11-26 13:37 | disposition home or self-care (01) | DRG 885 ==
LOC: BHU 14:18
PROVIDERS: ADMIT Psychiatry & Neurology Psychiatry
DX: F33.2 Major depressive disorder, recurrent severe without psychotic features (principal); R45.851 Suicidal ideations; I50.42 Chronic combined systolic (congestive) and diastolic (congestive) heart failure; Z59.00 Homelessness unspecified; F15.20 Other stimulant dependence, uncomplicated; I11.0 Hypertensive heart disease with heart failure; E11.9 Type 2 diabetes mellitus without complications; G43.909 Migraine, unspecified, not intractable, without status migrainosus; F43.10 Post-traumatic stress disorder, unspecified; M54.9 Dorsalgia, unspecified; G89.29 Other chronic pain; F12.10 Cannabis abuse, uncomplicated; Z90.49 Acquired absence of other specified parts of digestive tract; Z90.89 Acquired absence of other organs; Z98.890 Other specified postprocedural states; Z79.811 Long term (current) use of aromatase inhibitors; Z79.899 Other long term (current) drug therapy; Z91.148 Patient's other noncompliance with medication regimen for other reason; Z79.84 Long term (current) use of oral hypoglycemic drugs
CPT/HCPCS: 82947; A9270

== ENCOUNTER → 2025-02-10 | Outpatient (CLI) | payer OTHER ==
[~2025-02-10] MED LIST changes: +GABA300 PO; +LOSA50 PO; +Prozac40 MG PO; +QUET100 PO
[2025-02-10 12:54] LABS: BASOPHILS ABSOLUTE AUTO 0.07 K/mm3 (0.00-0.23); BASOPHILS PERCENT AUTO 1 % (0-2); EOSINOPHILS ABSOLUTE AUTO 0.13 K/mm3 (0.00-0.68); EOSINOPHILS PERCENT AUTO 1 % (0-6); Hematocrit 47.8 % (37.0-53.0); Hemoglobin 16.8 g/dL (13.5-17.5); IMMATURE GRAN ABSOLUTE AUTO 0.03 K/mm3 (0.00-0.10); IMMATURE GRAN PERCENT AUTO 0 % (0-1); LYMPHOCYTES ABSOLUTE AUTO 2.22 K/mm3 (0.84-5.20); LYMPHOCYTES PERCENT AUTO 21 % (21-46); MONOCYTES ABSOLUTE AUTO 0.68 K/mm3 (0.16-1.47); MONOCYTES PERCENT AUTO 6 % (4-13); Mean Corpuscular HGB Conc 35.1 g/dL (31.5-36.5); Mean Corpuscular Volume 80 fL (80-100); Mean Platelet Volume 9.9 fL (9.1-12.4); NEUTROPHILS ABSOLUTE AUTO 7.47 K/mm3 (1.96-9.15); NEUTROPHILS PERCENT AUTO 71 % (41-73); Platelet Count 266 K/mm3 (150-400); RDW Coefficient Variation 13.2 % (11.7-14.2); RDW Standard Deviation 37.6 fL (35.1-46.3)
[2025-02-10 13:03] LABS: Albumin, Blood 4.1 g/dL (3.4-5.0); Albumin/Globulin Ratio 1.1 (0.8-1.8); Bilirubin, Total 0.6 mg/dL (0.1-1.0); Bun/Creatinine Ratio 18.4 (12.0-20.0); Calcium, Blood 9.1 mg/dL (8.5-10.1); Creatinine, Blood 1.14 mg/dL (0.60-1.20); Globulin, Blood 3.9 g/dL (2.2-4.0); Potassium, Blood 4.1 mmol/L (3.5-5.5)
== END | disposition home or self-care (01) ==
LOC: LAB 12:48 → LAB SHORT 12:48
PROVIDERS: Chiropractor
DX: R73.9 Hyperglycemia, unspecified (principal); R10.9 Unspecified abdominal pain
CPT/HCPCS: 80053; 83036; 85025